=== PATIENT | female | born 1965 | race African-American/Black ===

== ENCOUNTER → 2022-02-28 | Day surgery (SDC) | payer BC ==
[~2022-02-28] MED LIST: CLONIDINE HCL0.2 MG PO; KETAMINE HCL INJ 50 MG/ML 10 ML VIAL ONE; MIDAZOLAM HCL 2 MG/2 ML VIAL ONE; POVIDONE IODINE 0.05% 0.05 % ML PO ONE; PROPOFOL IV EMULSION 10 MG/ML 20 ML VIAL ONE; TRIBENZOR 40-11 EAC1 PO
[2022-02-28 07:04] LABS: ANION GAP 13.6 mmol/L (8-16); CALCIUM 8.8 mg/dL (8.4-10.2); CREATININE, SERUM 1.23 mg/dL (0.57-1.11); POTASSIUM 3.6 mmol/L (3.5-5.1)
[2022-02-28 08:10] VITALS: BP 129/76
== END | disposition home or self-care (01) ==
LOC: ENDO 06:36
PROVIDERS: ATTEND Surgery
DX: K21.9 Gastro-esophageal reflux disease without esophagitis (principal); K29.50 Unspecified chronic gastritis without bleeding; K31.1 Adult hypertrophic pyloric stenosis; K44.9 Diaphragmatic hernia without obstruction or gangrene; K20.90 Esophagitis, unspecified without bleeding; Z98.84 Bariatric surgery status; E66.01 Morbid (severe) obesity due to excess calories; I10 Essential (primary) hypertension; Z01.810 Encounter for preprocedural cardiovascular examination; Z01.812 Encounter for preprocedural laboratory examination; Z20.822 Contact with and (suspected) exposure to COVID-19; Z79.899 Other long term (current) drug therapy; Z68.43 Body mass index [BMI] 50.0-59.9, adult
CPT/HCPCS: 36415; 43239; 80048; 88305; 88312; 93005; J2704; U0002; J2250

== ENCOUNTER 2022-06-06 11:42 | Observation (INO) | payer BC ==
[2022-06-02 09:10] LABS: BASOPHILS # (AUTO) 0.1 (0.0-0.1); BASOPHILS % 0.8 % (0.0-1.0); EOSINOPHILS # (AUTO) 0.1 (0.0-0.4); EOSINOPHILS % 1.5 % (0.0-6.0); HEMATOCRIT 41.5 % (34.2-44.1); HEMOGLOBIN 13.1 g/dL (12.0-16.0); LYMPHOCYTES # (AUTO) 2.5 (1.0-3.2); LYMPHOCYTES % 38.4 % (18.0-39.1); MEAN CORPUSCULAR HEMOGLOBIN 29.2 pg (28-32); MEAN CORPUSCULAR HGB CONC 31.6 g/dL (31-35); MEAN CORPUSCULAR VOLUME 92.4 fL (81-99); MONOCYTES # (AUTO) 0.6 (0.2-0.8); MONOCYTES % 9.1 % (4.4-11.3); NEUTROPHILS # (AUTO) 3.2 (2.1-6.9); PLATELET COUNT 188 x10e3/uL (140-360); RED BLOOD COUNT 4.49 x10e6/uL (3.6-5.1); RED CELL DISTRIBUTION WIDTH 12.2 % (11.7-14.4)
[2022-06-02 09:44] LABS: ANION GAP 14.4 mmol/L (8-16); CALCIUM 9.2 mg/dL (8.4-10.2); CREATININE, SERUM 1.52 mg/dL (0.57-1.11); POTASSIUM 3.4 mmol/L (3.5-5.1)
[~2022-06-06] VITALS: Ht 172.7 cm; Wt 145.1 kg
[~2022-06-06 11:42] MED LIST changes: -KETAMINE HCL INJ 50 MG/ML 10 ML VIAL ONE; -MIDAZOLAM HCL 2 MG/2 ML VIAL ONE; -POVIDONE IODINE 0.05% 0.05 % ML PO ONE; -PROPOFOL IV EMULSION 10 MG/ML 20 ML VIAL ONE
[2022-06-06] MEDS ORDERED: HYDROCODONE/APAP 7.5MG-325MG 1 EA TAB PO PRN (12:45)
[2022-06-06] MEDS ORDERED: ONDANSETRON HCL INJ 2MG/ML 2ML 2 MG/ML VIAL IV PRN (12:45)
[2022-06-06] MEDS ORDERED: LIDOCAINE HCL 2% LOCAL INJ 5 ML SDV VIAL INJ ONE (13:14)
[2022-06-06] MEDS ORDERED: PROPOFOL IV EMULSION 10 MG/ML 20 ML VIAL ONE (13:14)
[2022-06-06] MEDS ORDERED: SEVOFLURANE INHAL SOLN 250 ML PEN BTL ONE (13:14)
[2022-06-06] MEDS ORDERED: DEXAMETHASONE SOD PHOS INJ 4 MG/ML SDV ONE (13:14)
[2022-06-06] MEDS ORDERED: GLYCOPYRROLATE INJ 0.2 MG/ML VIAL ONE (13:14)
[2022-06-06] MEDS ORDERED: ONDANSETRON HCL INJ 2MG/ML 2ML 2 MG/ML VIAL ONE ×2 (13:14→16:30)
[2022-06-06] MEDS ORDERED: ROCURONIUM BROMIDE 10 MG/ML 5ML VIAL IV ONE (13:14)
[2022-06-06] MEDS ORDERED: POVIDONE IODINE 0.05% 0.05 % ML PO ONE (13:14)
[2022-06-06] MEDS ORDERED: NEOSTIGMINE 1 MG/ML 10ML VIAL ONE (13:14)
[2022-06-06] MEDS ORDERED: BUPIVACAINE 0.25% 30ML SDV ONE (13:24)
[2022-06-06] MEDS ORDERED: FIBRIN FROZEN 2 ML SPRAY.GEL TOP ONE (15:42)
[2022-06-06] MEDS ORDERED: FENTANYL CITRATE/PF 100MCG/2 ML INJ ONE (16:06)
[2022-06-06] MEDS ORDERED: HYDROMORPHONE 1MG/1ML INJ ONE (16:21)
[2022-06-06] MEDS: Morphine 2mg Syringe 2 MG/ML SYR IV PRN ×3 (17:20→23:19)
[2022-06-06] MEDS: SODIUM CHLORIDE 0.9% 1000ML 1,000 ML IV SCH (17:21)
[2022-06-06 17:25] VITALS: BP 122/66
[2022-06-06 17:26] VITALS: BP 122/66
[2022-06-06] MEDS ORDERED: SCOPOLAMINE 1 MG PATCH TOP SCH (17:30)
[2022-06-06 17:32] VITALS: BP 122/66
[2022-06-06 20:00] VITALS: BP 122/64
[2022-06-06] MEDS: ENOXAPARIN SOD INJ 40 MG/0.4 ML SYR SC SCH (23:45)
[2022-06-07] VITALS: BP 123/73
[2022-06-07] MEDS: Morphine 2mg Syringe 2 MG/ML SYR IV PRN ×2 (01:38→08:06)
[2022-06-07] MEDS: SODIUM CHLORIDE 0.9% 1000ML 1,000 ML IV SCH ×2 (01:38→09:16)
[2022-06-07 04:00] VITALS: BP 128/53
[2022-06-07 06:13] LABS: BASOPHILS % 0.1 % (0.0-1.0); HEMATOCRIT 40.4 % (34.2-44.1); HEMOGLOBIN 12.8 g/dL (12.0-16.0); LYMPHOCYTES # (AUTO) 1.8 (1.0-3.2); LYMPHOCYTES % 15.3 % (18.0-39.1); MEAN CORPUSCULAR HEMOGLOBIN 29.3 pg (28-32); MEAN CORPUSCULAR HGB CONC 31.7 g/dL (31-35); MEAN CORPUSCULAR VOLUME 92.4 fL (81-99); MONOCYTES # (AUTO) 0.7 (0.2-0.8); NEUTROPHILS # (AUTO) 9.4 (2.1-6.9); NEUTROPHILS % 78.3 % (38.7-80.0); PLATELET COUNT 192 x10e3/uL (140-360); RED BLOOD COUNT 4.37 x10e6/uL (3.6-5.1)
[2022-06-07 06:58] LABS: ALBUMIN 3.6 g/dL (3.5-5.0); ALBUMIN/GLOBULIN RATIO 0.9 (0.8-2.0); ANION GAP 13.8 mmol/L (8-16); CALCIUM 8.7 mg/dL (8.4-10.2); CREATININE, SERUM 1.19 mg/dL (0.57-1.11); MAGNESIUM 1.7 MG/DL (1.3-2.1); PHOSPHORUS 2.3 MG/DL (2.3-4.7); POTASSIUM 3.8 mmol/L (3.5-5.1)
[2022-06-07 08:02] VITALS: BP 161/75
[2022-06-07] MEDS: ENOXAPARIN SOD INJ 40 MG/0.4 ML SYR SC SCH (08:07)
[2022-06-07] MEDS ORDERED: CLONIDINE HCL 0.1 MG TAB PO SCH (09:00)
[2022-06-07 09:01] VITALS: BP 161/75
== END 2022-06-07 11:08 | disposition home or self-care (01) ==
LOC: OR 11:42 → INTOOBSV 15:41 → PACU V 15:41 → MED/SURG 16:40
PROVIDERS: ADMIT Internal Medicine; ATTEND Internal Medicine
DX: E66.01 Morbid (severe) obesity due to excess calories (principal); I13.10 Hypertensive heart and chronic kidney disease without heart failure, with stage 1 through stage 4 chronic kidney disease, or unspecified chronic kidney disease; Z68.42 Body mass index [BMI] 45.0-49.9, adult; N18.30 Chronic kidney disease, stage 3 unspecified; K44.9 Diaphragmatic hernia without obstruction or gangrene; Z98.84 Bariatric surgery status; Z01.818 Encounter for other preprocedural examination; Z20.822 Contact with and (suspected) exposure to COVID-19
CPT/HCPCS: 0223U; 36415 ×2; 43281; 43772; 43775; 80048; 80053; 83735; 84100; 85025 ×2; 93005; 94799; C1713; G0378 ×2; J0690; J1100; J1170; J1650 ×2; J2001; J2270 ×2; J2405 ×2; J2704; J2710; J3010; J7030 ×2